=== PATIENT | male | born 1965 | race Caucasian/White ===

== ENCOUNTER 2021-07-12 14:33 | Inpatient (IN) ==
[2021-07-12] MEDS ORDERED: NOREPINEPHRINE 4 MG/4 ML VIAL IV ONE (16:29)
[2021-07-12] MEDS: NOREPINEPHRINE 8 MG in SODIUM CHLORIDE 0.9% 242 ML IV PRN ×3 (16:43→22:16)
[2021-07-12] MEDS ORDERED: ONDANSETRON 4 MG/2 ML VIAL IV PRN (16:43)
[2021-07-12] MEDS ORDERED: ACETAMINOPHEN 325 MG TABLET PO PRN (16:43)
[2021-07-12] MEDS ORDERED: ALBUTEROL 2.5 MG/3 ML NEB RESP TX PRN (16:43)
[2021-07-12] MEDS ORDERED: SODIUM BICARBONATE 50 MEQ/50 ML VIAL IV ONE ×2 (16:45→20:28)
[2021-07-12] MEDS ORDERED: GLUCAGON 1 MG VIAL IM PRN (16:45)
[2021-07-12] MEDS ORDERED: DEXTROSE 10% 250 ML BAG IV PRN (16:49)
[2021-07-12] MEDS: PANTOPRAZOLE 40 MG VIAL IV SCH (16:55)
[2021-07-12 17:05] LABS: Arterial Base Excess iSTAT -7 MMOL/L (-2.5-2.5); Arterial Bicarbonate iSTAT 21.6 MMOL/L (20-26); Arterial O2 Saturation iSTAT 83 % (95-100); Arterial PCO2 iSTAT 52 MM HG (35-48); Arterial PO2 iSTAT 57 MM HG (80-95); Arterial Total CO2 iSTAT 23 MMO/L (23-27); Arterial pH iSTAT 7.226 (7.35-7.45)
[2021-07-12] MEDS: MIDAZOLAM 100 MG in SODIUM CHLORIDE 0.9% 80 ML IV PRN (17:09)
[2021-07-12] MEDS ORDERED: ETOMIDATE 20 MG/10 ML VIAL IV ONE (17:09)
[2021-07-12] MEDS ORDERED: ROCURONIUM 100 MG/10 ML VIAL IV ONE (17:09)
[2021-07-12] MEDS ORDERED: MIDAZOLAM 2 MG/2 ML VIAL IV ONE (17:09)
[2021-07-12] MEDS ORDERED: MIDAZOLAM 10 MG/2 ML VIAL ONE (17:11)
[2021-07-12 17:24] LABS: INR 1.3; PT Patient Result 14.7 SECS (10.5-12.0); Partial Thromboplastin Time 35.9 SECS (23.8-32.1)
[2021-07-12 17:30] LABS: Basophils # 0.1 10*3/uL (0.0-0.2); Basophils % 0.4 % (0.0-0.8); Hematocrit 52.8 VOL% (42.0-52.0); Hemoglobin 16.2 GM/DL (14.0-18.0); Immature Granulocytes % 1.8 %; Immature Granulocytes Absolute 0.64 #; Lymphocytes # 13.7 10*3/uL (1.4-4.0); Lymphocytes % 38.1 % (21.2-54.2); Mean Corpuscular HGB Conc 30.7 GM/DL (32-36); Mean Platelet Volume 12.3 FL (9.6-12.0); Monocytes # 2.5 10*3/uL (0.11-0.8); Neutrophils % 52.7 % (38.7-73.9); Platelet Count 213 T/CUMM (130-400); Red Blood Count 5.56 MC/CUMM (3.8-5.5); Red Cell Distribution Width 13.7 % (9.3-17.3); White Blood Count 35.8 T/CUMM (4-12)
[2021-07-12 17:36] LABS: Risk Ratio 4.38; VLDL Cholesterol 33.4 MG/DL
[2021-07-12] MEDS ORDERED: CALCIUM GLUCONATE RIDER 1,000 MG/50 ML PREMIX IV ONE (17:50)
[2021-07-12 17:54] LABS: Band Neutrophils 25 % (0-10); Lymphocytes 5 % (20-55); Metamyelocytes 7 %; Total Cells Counted 100
[2021-07-12 17:57] LABS: Acanthocytes Few; Burr Cells Few; Platelet Estimate Normal
[2021-07-12 17:59] LABS: Alanine Aminotransferase 1777 U/L (16-61); Alkaline Phosphatase 92 U/L (45-117); Aspartate Amino Transferase 3536 U/L (0-37); Blood Urea Nitrogen 45 MG/DL (7-18); Calcium 7.2 MG/DL (8.5-10.1); Carbon Dioxide 13 MMOL/L (21-32); Chloride 110 MMOL/L (98-107); Estimated Glom Filtration Rate 18 ML/MIN; Glucose 236 MG/DL (74-106); Osmolality,Calculated 296.5 MOS/KG (273-304); Sodium 139 MMOL/L (136-145); Total Protein 4.7 G/DL (6.4-8.2)
[2021-07-12 18:00] LABS: Potassium 6.7 MMOL/L (3.5-5.1)
[2021-07-12] MEDS ORDERED: MAGNESIUM SULF RIDER 4 GM/100 ML PREMIX IV ONE (18:05)
[2021-07-12] MEDS: SODIUM BICARB INJ 150 MEQ in STERILE WATER INJ 1,000 ML IV SCH (18:22)
[2021-07-12] MEDS: INSULIN LISPRO 100 UNIT/ML SUBCUT SCH ×2 (18:30→21:02)
[2021-07-12] MEDS: PIPERACILLIN/TAZOBACTAM 3,375 MG in SODIUM CHLORIDE 0.9% 100 ML IV SCH (18:45)
[2021-07-12 20:15] LABS: ABG Base Excess -15.9 MMOL/L (-2.5-2.5); ABG Oxygen Saturation 91.8 % (95-100); ABG PCO2 44.8 MM HG (35-48); ABG PO2 79.6 MM HG (80-95); ABG TCO2 12.8 MMOL/L (23-27)
[2021-07-12 20:17] LABS: ABG PH 7.119 (7.35-7.45)
[2021-07-12] MEDS: SODIUM ZIRCONIUM CYCLOSILICATE 10 GM PACK PO SCH (20:19)
[2021-07-13] MEDS: INSULIN LISPRO 100 UNIT/ML SUBCUT SCH ×6 (00:23→20:08)
[2021-07-13 00:26] LABS: ABG Base Excess -11.5 MMOL/L (-2.5-2.5); ABG HCO3 15.6 MMOL/L (20-26); ABG Oxygen Saturation 91.9 % (95-100); ABG PCO2 39.7 MM HG (35-48); ABG PH 7.213 (7.35-7.45); ABG PO2 67.2 MM HG (80-95); ABG TCO2 16.8 MMOL/L (23-27)
[2021-07-13] MEDS: NOREPINEPHRINE 16 MG in SODIUM CHLORIDE 0.9% 234 ML IV PRN ×9 (00:26→22:36)
[2021-07-13 00:35] LABS: Bacteria,Urine Occasional /HPF (Few)
[2021-07-13 00:40] LABS: Bilirubin,Urine Negative (Negative); Blood, Urine Moderate mg/dL (Negative); Glucose,Urine (UA) 250 mg/dL (Negative); Ketones,Urine Trace mg/dL (Negative); Nitrite,Urine Negative (Negative); Protein,Urine >=300 mg/dL (Negative); Urine Appearance Clear (Clear); Urine Color Yellow (Yellow)
[2021-07-13 00:41] LABS: Urine Urobilinogen 0.2 eU/dL (<2.0)
[2021-07-13] MEDS: SODIUM BICARB INJ 150 MEQ in STERILE WATER INJ 1,000 ML IV SCH ×3 (02:08→18:00)
[2021-07-13] MEDS: PIPERACILLIN/TAZOBACTAM 3,375 MG in SODIUM CHLORIDE 0.9% 100 ML IV SCH ×2 (02:45→15:00)
[2021-07-13] MEDS: MORPHINE 2 MG/1 ML SYRINGE IV PRN (02:55)
[2021-07-13 04:37] LABS: ABG Base Excess -11.8 MMOL/L (-2.5-2.5); ABG HCO3 13.6 MMOL/L (20-26); ABG Oxygen Saturation 92.4 % (95-100); ABG PCO2 30.5 MM HG (35-48); ABG PH 7.266 (7.35-7.45); ABG PO2 67.4 MM HG (80-95); ABG TCO2 14.5 MMOL/L (23-27)
[2021-07-13 04:57] LABS: Basophils # 0.2 10*3/uL (0.0-0.2); Basophils % 0.4 % (0.0-0.8); Hematocrit 53.9 VOL% (42.0-52.0); Hemoglobin 17.1 GM/DL (14.0-18.0); Immature Granulocytes % 0.9 %; Immature Granulocytes Absolute 0.32 #; Lymphocytes # 17.8 10*3/uL (1.4-4.0); Lymphocytes % 51.7 % (21.2-54.2); Mean Corpuscular HGB Conc 31.7 GM/DL (32-36); Mean Corpuscular Volume 91.5 FL (87-102); Mean Platelet Volume 12.1 FL (9.6-12.0); Monocytes # 2.8 10*3/uL (0.11-0.8); Platelet Count 190 T/CUMM (130-400); Red Blood Count 5.89 MC/CUMM (3.8-5.5); Red Cell Distribution Width 14.2 % (9.3-17.3); White Blood Count 34.3 T/CUMM (4-12)
[2021-07-13] MEDS ORDERED: SODIUM BICARBONATE 50 MEQ/50 ML VIAL IV ONE ×3 (05:16→13:28)
[2021-07-13 05:20] LABS: Albumin 1.8 G/DL (3.4-5.0); Calcium 6.9 MG/DL (8.5-10.1); Osmolality,Calculated 293.5 MOS/KG (273-304); Total Protein 4.7 G/DL (6.4-8.2)
[2021-07-13 05:36] LABS: Band Neutrophils 3 % (0-10); Lymphocytes 27 % (20-55); Platelet Estimate Adequate; Total Cells Counted 100
[2021-07-13 05:37] LABS: Smudge Cells Few
[2021-07-13 06:08] VITALS: BP 105/50
[2021-07-13] MEDS ORDERED: SODIUM CHLORIDE 0.9% 1,000 ML IV ONE ×5 (06:53→22:54)
[2021-07-13] MEDS: SODIUM ZIRCONIUM CYCLOSILICATE 10 GM PACK PO SCH ×3 (08:30→20:08)
[2021-07-13] MEDS: MIDAZOLAM 100 MG in SODIUM CHLORIDE 0.9% 80 ML IV PRN (10:30)
[2021-07-13] MEDS: gemfibroziL 600 MG TABLET PO SCH ×2 (12:36→19:53)
[2021-07-13 13:23] LABS: ABG Base Excess -11.7 MMOL/L (-2.5-2.5); ABG HCO3 15.4 MMOL/L (20-26); ABG Oxygen Saturation 90.6 % (95-100); ABG PCO2 31.7 MM HG (35-48); ABG PH 7.265 (7.35-7.45); ABG PO2 70.5 MM HG (80-95); ABG TCO2 12.4 MMOL/L (23-27)
[2021-07-13] MEDS ORDERED: HYDROCORTISONE 100 MG VIAL IV ONE (13:28)
[2021-07-13] MEDS ORDERED: NOREPINEPHRINE 4 MG/4 ML VIAL IV ONE (13:38)
[2021-07-13 13:43] LABS: Calcium 5.9 MG/DL (8.5-10.1); Potassium 5.9 MMOL/L (3.5-5.1)
[2021-07-13] MEDS ORDERED: CALCIUM GLUCONATE RIDER 1,000 MG/50 ML PREMIX IV ONE (13:48)
[2021-07-13] MEDS ORDERED: ZINC OXIDE PASTE 113 GM TUBE TOP PRN (14:15)
[2021-07-13 14:51] LABS: ABG Base Excess -10.5 MMOL/L (-2.5-2.5); ABG HCO3 16.3 MMOL/L (20-26); ABG Oxygen Saturation 93.6 % (95-100); ABG PCO2 31.4 MM HG (35-48); ABG PO2 79.2 MM HG (80-95); ABG TCO2 12.9 MMOL/L (23-27)
[2021-07-13 15:10] LABS: Calcium 6.1 MG/DL (8.5-10.1); Osmolality,Calculated 304.8 MOS/KG (273-304); Potassium 5.9 MMOL/L (3.5-5.1)
[2021-07-13] MEDS ORDERED: PHENYLEPHRINE DRIP 40 MG/250 ML PREMIX IV ONE (15:16)
[2021-07-13] MEDS: PHENYLEPHRINE DRIP 40 MG/250 ML PREMIX IV PRN ×3 (15:20→19:50)
[2021-07-13] MEDS ORDERED: VASOPRESSIN 20 UNITS/ML VIAL ONE (15:30)
[2021-07-13] MEDS: VASOPRESSIN 100 UNITS in SODIUM CHLORIDE 0.9% 95 ML IV SCH ×2 (15:50→21:36)
[2021-07-13] MEDS ORDERED: HEPARIN 10,000 UNIT/10 ML VIAL IV SCH (17:30)
[2021-07-13 19:32] LABS: Hepatitis B Core IgM Quant 0.08 Index
[2021-07-13] MEDS: ACETAMINOPHEN 325 MG/10.15 ML UDCUP NG PRN (20:08)
[2021-07-13] MEDS: PANTOPRAZOLE 40 MG VIAL IV SCH (20:36)
[2021-07-13 20:46] LABS: Hepatitis B Surface Ag Quant < 0.10 Index; Hepatitis B Surface Ag Result Non-Reactive (NonReactive); Hepatitis C Virus Ab Quant 0.14 Index; Hepatitis C Virus Ab Result Non-Reactive (NonReactive)
[2021-07-13] MEDS: PHENYLEPHRINE INJ 80 MG in SODIUM CHLORIDE 0.9% 242 ML IV PRN (23:52)
[2021-07-14 00:13] LABS: ABG Base Excess -10.8 MMOL/L (-2.5-2.5); ABG HCO3 13.4 MMOL/L (20-26); ABG Oxygen Saturation 97.1 % (95-100); ABG PCO2 26.7 MM HG (35-48); ABG PH 7.319 (7.35-7.45); ABG PO2 108.3 MM HG (80-95); ABG TCO2 14.2 MMOL/L (23-27); Glucose Heart Surgery 77 MG/DL (74-106); Hemoglobin Heart Surgery 15.1 G/DL (14.0-18.0); Potassium Heart/CVR 4.8 MMOL/L (3.5-5.1)
[2021-07-14] MEDS ORDERED: SODIUM BICARBONATE 50 MEQ/50 ML VIAL IV ONE ×5 (00:14→23:30)
[2021-07-14] MEDS: VASOPRESSIN 100 UNITS in SODIUM CHLORIDE 0.9% 95 ML IV SCH ×3 (00:22→10:28)
[2021-07-14] MEDS: INSULIN LISPRO 100 UNIT/ML SUBCUT SCH ×6 (00:26→19:54)
[2021-07-14] MEDS ORDERED: CALCIUM GLUCONATE RIDER 1,000 MG/50 ML PREMIX IV ONE ×3 (00:31→17:03)
[2021-07-14] MEDS: NOREPINEPHRINE 16 MG in SODIUM CHLORIDE 0.9% 234 ML IV PRN ×11 (01:00→23:31)
[2021-07-14] MEDS: SODIUM BICARB INJ 150 MEQ in STERILE WATER INJ 1,000 ML IV SCH ×3 (01:40→17:10)
[2021-07-14] MEDS: PHENYLEPHRINE INJ 80 MG in SODIUM CHLORIDE 0.9% 242 ML IV PRN ×3 (02:00→06:08)
[2021-07-14] MEDS ORDERED: CALCIUM GLUCONATE 1,000 MG/10 ML VIAL IV ONE (02:33)
[2021-07-14] MEDS: PIPERACILLIN/TAZOBACTAM 3,375 MG in SODIUM CHLORIDE 0.9% 100 ML IV SCH ×2 (03:30→15:20)
[2021-07-14 03:35] LABS: ABG Base Excess -11.2 MMOL/L (-2.5-2.5); ABG HCO3 15.8 MMOL/L (20-26); ABG Oxygen Saturation 93.5 % (95-100); ABG PCO2 30.6 MM HG (35-48); ABG PH 7.282 (7.35-7.45); ABG PO2 81.7 MM HG (80-95); ABG TCO2 12.4 MMOL/L (23-27)
[2021-07-14 04:07] LABS: Basophils # 0.1 10*3/uL (0.0-0.2); Basophils % 0.1 % (0.0-0.8); Eosinophils # 0.5 10*3/uL (0.0-0.87); Eosinophils % 1.3 % (0.00-10.9); Hematocrit 48.7 VOL% (42.0-52.0); Hemoglobin 15.4 GM/DL (14.0-18.0); Immature Granulocytes % 1.3 %; Immature Granulocytes Absolute 0.49 #; Lymphocytes # 18.7 10*3/uL (1.4-4.0); Lymphocytes % 49.9 % (21.2-54.2); Mean Corpuscular HGB Conc 31.6 GM/DL (32-36); Mean Corpuscular Volume 91.7 FL (87-102); Mean Platelet Volume 11.5 FL (9.6-12.0); Monocytes # 2.8 10*3/uL (0.11-0.8); Monocytes % 7.4 % (1.7-12.7); NRBC # 0.46 10*3/uL; Platelet Count 107 T/CUMM (130-400); Red Blood Count 5.31 MC/CUMM (3.8-5.5); Red Cell Distribution Width 15.1 % (9.3-17.3); White Blood Count 37.5 T/CUMM (4-12)
[2021-07-14 04:25] LABS: Albumin 1.3 G/DL (3.4-5.0); Bilirubin,Total 1.2 MG/DL (0.20-1.00); Calcium 5.9 MG/DL (8.5-10.1); Osmolality,Calculated 302.1 MOS/KG (273-304); Potassium 4.6 MMOL/L (3.5-5.1); Total Protein 3.8 G/DL (6.4-8.2)
[2021-07-14 04:48] LABS: Lymphocytes 53 % (20-55); Nucleated Red Blood Cells 4 (0-5); Platelet Estimate Decreased; Total Cells Counted 100
[2021-07-14] MEDS ORDERED: ALBUMIN 5% 12.5 GM/250 ML VIAL IV ONE (06:10)
[2021-07-14] MEDS ORDERED: SODIUM BICARBONATE 50 MEQ/50 ML SYRINGE IV ONE (06:13)
[2021-07-14] MEDS: PHENYLEPHRINE INJ 160 MG in SODIUM CHLORIDE 0.9% 234 ML IV PRN ×4 (08:15→20:47)
[2021-07-14 09:14] LABS: Basophils % 0.1 % (0.0-0.8); Eosinophils # 0.4 10*3/uL (0.0-0.87); Eosinophils % 1.1 % (0.00-10.9); Hematocrit 46.4 VOL% (42.0-52.0); Hemoglobin 14.7 GM/DL (14.0-18.0); Immature Granulocytes Absolute 0.37 #; Lymphocytes # 18.6 10*3/uL (1.4-4.0); Lymphocytes % 51.6 % (21.2-54.2); Mean Corpuscular HGB Conc 31.7 GM/DL (32-36); Mean Corpuscular Volume 91.5 FL (87-102); Mean Platelet Volume 12.6 FL (9.6-12.0); Monocytes # 1.4 10*3/uL (0.11-0.8); NRBC # 0.31 10*3/uL; Neutrophils % 42.2 % (38.7-73.9); Platelet Count 108 T/CUMM (130-400); Red Blood Count 5.07 MC/CUMM (3.8-5.5); Red Cell Distribution Width 15.4 % (9.3-17.3)
[2021-07-14 09:14] LABS: ABG HCO3 17.3 MMOL/L (20-26); ABG Oxygen Saturation 92.2 % (95-100); ABG PCO2 30.2 MM HG (35-48); ABG PH 7.327 (7.35-7.45); ABG TCO2 13.7 MMOL/L (23-27)
[2021-07-14] MEDS: HYDROCORTISONE 100 MG VIAL IV SCH ×3 (09:15→23:42)
[2021-07-14] MEDS: gemfibroziL 600 MG TABLET PO SCH (09:15)
[2021-07-14] MEDS: ACETAMINOPHEN 325 MG/10.15 ML UDCUP NG PRN ×2 (09:34→20:50)
[2021-07-14 09:36] LABS: Osmolality,Calculated 311.6 MOS/KG (273-304); Potassium 4.6 MMOL/L (3.5-5.1)
[2021-07-14] MEDS ORDERED: VASOPRESSIN 100 UNITS in SODIUM CHLORIDE 0.9% 95 ML IV PRN (09:37)
[2021-07-14 09:43] LABS: Calcium 5.4 MG/DL (8.5-10.1)
[2021-07-14 09:55] LABS: Band Neutrophils 4 % (0-10); Lymphocytes 35 % (20-55); Total Cells Counted 100
[2021-07-14 09:57] LABS: Smudge Cells Moderate
[2021-07-14 09:59] LABS: Anisocytosis Slight; Platelet Estimate Adequate
[2021-07-14] MEDS: SODIUM ZIRCONIUM CYCLOSILICATE 10 GM PACK PO SCH (10:30)
[2021-07-14 16:18] LABS: ABG Base Excess -9.8 MMOL/L (-2.5-2.5); ABG HCO3 16.7 MMOL/L (20-26); ABG Oxygen Saturation 91.6 % (95-100); ABG PCO2 40.1 MM HG (35-48); ABG PH 7.245 (7.35-7.45); ABG PO2 80.4 MM HG (80-95); ABG TCO2 15.3 MMOL/L (23-27)
[2021-07-14 16:34] LABS: Osmolality,Calculated 314.7 MOS/KG (273-304); Potassium 5.2 MMOL/L (3.5-5.1)
[2021-07-14 16:35] LABS: Calcium 5.1 MG/DL (8.5-10.1)
[2021-07-14] MEDS: PANTOPRAZOLE 40 MG VIAL IV SCH (17:23)
[2021-07-14] MEDS ORDERED: MIDAZOLAM 100 MG in SODIUM CHLORIDE 0.9% 80 ML IV PRN (21:11)
[2021-07-15] MEDS: INSULIN LISPRO 100 UNIT/ML SUBCUT SCH ×7 (00:56→20:53)
[2021-07-15] MEDS: PHENYLEPHRINE INJ 160 MG in SODIUM CHLORIDE 0.9% 234 ML IV PRN ×4 (01:01→13:50)
[2021-07-15] MEDS ORDERED: SODIUM BICARBONATE 50 MEQ/50 ML VIAL IV ONE ×5 (01:01→15:00)
[2021-07-15] MEDS: SODIUM BICARB INJ 150 MEQ in STERILE WATER INJ 1,000 ML IV SCH ×4 (01:42→22:44)
[2021-07-15] MEDS: NOREPINEPHRINE 16 MG in SODIUM CHLORIDE 0.9% 234 ML IV PRN ×10 (01:45→23:11)
[2021-07-15] MEDS: PIPERACILLIN/TAZOBACTAM 3,375 MG in SODIUM CHLORIDE 0.9% 100 ML IV SCH (02:50)
[2021-07-15 04:07] LABS: Basophils % 0.1 % (0.0-0.8); Eosinophils # 0.4 10*3/uL (0.0-0.87); Eosinophils % 1.2 % (0.00-10.9); Hematocrit 44.5 VOL% (42.0-52.0); Hemoglobin 13.7 GM/DL (14.0-18.0); Immature Granulocytes % 1.9 %; Immature Granulocytes Absolute 0.72 #; Lymphocytes # 17.7 10*3/uL (1.4-4.0); Lymphocytes % 47.4 % (21.2-54.2); Mean Corpuscular HGB Conc 30.8 GM/DL (32-36); Mean Corpuscular Volume 92.9 FL (87-102); Mean Platelet Volume 12.4 FL (9.6-12.0); Monocytes # 1.5 10*3/uL (0.11-0.8); Monocytes % 4.1 % (1.7-12.7); NRBC # 0.28 10*3/uL; Neutrophils % 45.3 % (38.7-73.9); Platelet Count 77 T/CUMM (130-400); Red Blood Count 4.79 MC/CUMM (3.8-5.5); Red Cell Distribution Width 15.9 % (9.3-17.3); White Blood Count 37.3 T/CUMM (4-12)
[2021-07-15 04:09] LABS: ABG Base Excess -10.2 MMOL/L (-2.5-2.5); ABG HCO3 16.1 MMOL/L (20-26); ABG Oxygen Saturation 88.3 % (95-100); ABG PCO2 36.9 MM HG (35-48); ABG PH 7.258 (7.35-7.45); ABG PO2 66.5 MM HG (80-95); ABG TCO2 17.2 MMOL/L (23-27)
[2021-07-15 04:49] LABS: Alanine Aminotransferase 594 U/L (16-61); Albumin 1.2 G/DL (3.4-5.0); Alkaline Phosphatase 132 U/L (45-117); Aspartate Amino Transferase 877 U/L (0-37); Blood Urea Nitrogen 95 MG/DL (7-18); Carbon Dioxide 17 MMOL/L (21-32); Chloride 100 MMOL/L (98-107); Estimated Glom Filtration Rate 9 ML/MIN; Glucose 257 MG/DL (74-106); Osmolality,Calculated 320.1 MOS/KG (273-304); Sodium 142 MMOL/L (136-145); Total Protein 3.6 G/DL (6.4-8.2)
[2021-07-15 04:52] LABS: Calcium < 5.0 MG/DL (8.5-10.1); Potassium 6.1 MMOL/L (3.5-5.1)
[2021-07-15] MEDS ORDERED: CALCIUM GLUCONATE RIDER 1,000 MG/50 ML PREMIX IV ONE ×3 (05:00→15:18)
[2021-07-15] MEDS: SODIUM ZIRCONIUM CYCLOSILICATE 10 GM PACK PO SCH ×4 (05:22→20:57)
[2021-07-15 05:47] LABS: Anisocytosis 1+; Band Neutrophils 26 % (0-10); Lymphocytes 20 % (20-55); Macrocytosis Slight; Metamyelocytes 2 %; Nucleated Red Blood Cells 3 (0-5); Platelet Estimate Decreased; Total Cells Counted 100
[2021-07-15] MEDS: HYDROCORTISONE 100 MG VIAL IV SCH ×2 (08:43→16:28)
[2021-07-15] MEDS ORDERED: DEXAMETHASONE 4 MG/1 ML VIAL IV ONE (10:22)
[2021-07-15 10:28] LABS: ABG Base Excess -7.2 MMOL/L (-2.5-2.5); ABG HCO3 18.4 MMOL/L (20-26); ABG Oxygen Saturation 84.9 % (95-100); ABG PH 7.294 (7.35-7.45); ABG PO2 56.2 MM HG (80-95); ABG TCO2 16.7 MMOL/L (23-27); Glucose Heart Surgery 306 MG/DL (74-106)
[2021-07-15 10:31] LABS: Potassium Heart/CVR 6.1 MMOL/L (3.5-5.1)
[2021-07-15] MEDS ORDERED: EPINEPHrine 1 MG/ML VIAL ONE (11:06)
[2021-07-15] MEDS: FLUDROCORTISONE 0.1 MG TABLET PO SCH (11:10)
[2021-07-15] MEDS: MIDODRINE 5 MG TABLET PO SCH ×3 (11:10→20:57)
[2021-07-15] MEDS: ALBUMIN 5% 12.5 GM/250 ML VIAL IV SCH ×2 (11:28→18:28)
[2021-07-15] MEDS: MEROPENEM 500 MG in SODIUM CHLORIDE 0.9% 100 ML IV SCH (11:29)
[2021-07-15] MEDS ORDERED: CALCIUM CHLORIDE 1,000 MG/10 ML SYRINGE IV ONE ×2 (13:04→13:30)
[2021-07-15] MEDS ORDERED: ALBUMIN 5% 12.5 GM/250 ML VIAL IV ONE (13:30)
[2021-07-15 14:33] LABS: ABG HCO3 13.7 MMOL/L (20-26); ABG Oxygen Saturation 84.2 % (95-100); ABG PCO2 52.8 MM HG (35-48); ABG TCO2 15.2 MMOL/L (23-27)
[2021-07-15 14:37] LABS: ABG PH 7.105 (7.35-7.45)
[2021-07-15 15:01] LABS: Albumin 1.8 G/DL (3.4-5.0); Bilirubin,Total 3.8 MG/DL (0.20-1.00); Osmolality,Calculated 314.1 MOS/KG (273-304); Potassium 4.8 MMOL/L (3.5-5.1); Total Protein 4.3 G/DL (6.4-8.2)
[2021-07-15 15:09] LABS: Calcium 5.8 MG/DL (8.5-10.1)
[2021-07-15 16:01] LABS: ABG Base Excess -11.1 MMOL/L (-2.5-2.5); ABG HCO3 15.6 MMOL/L (20-26); ABG Oxygen Saturation 82.6 % (95-100); ABG PCO2 44.7 MM HG (35-48); ABG PO2 62.8 MM HG (80-95); ABG TCO2 15.7 MMOL/L (23-27)
[2021-07-15 16:04] LABS: ABG PH 7.192 (7.35-7.45)
[2021-07-15] MEDS: PANTOPRAZOLE 40 MG VIAL IV SCH (17:16)
[2021-07-15 17:57] LABS: ABG Base Excess -10.1 MMOL/L (-2.5-2.5); ABG HCO3 16.4 MMOL/L (20-26); ABG Oxygen Saturation 90.9 % (95-100); ABG PCO2 38.1 MM HG (35-48); ABG PH 7.251 (7.35-7.45); ABG PO2 73.4 MM HG (80-95)
[2021-07-15 20:20] LABS: ABG Base Excess -7.6 MMOL/L (-2.5-2.5); ABG HCO3 18.2 MMOL/L (20-26); ABG Oxygen Saturation 91.2 % (95-100); ABG PCO2 36.9 MM HG (35-48); ABG PH 7.302 (7.35-7.45); ABG TCO2 16.3 MMOL/L (23-27)
[2021-07-15 20:25] LABS: ABG PO2 75.2 MM HG (80-95)
[2021-07-15] MEDS ORDERED: AMIODARONE INJ 150 MG in DEXTROSE 5% 100 ML IV ONE (20:37)
[2021-07-15] MEDS ORDERED: AMIODARONE 150 MG/3 ML VIAL ONE (20:39)
[2021-07-15 20:43] LABS: Blood Urea Nitrogen 87 MG/DL (7-18); Carbon Dioxide 19 MMOL/L (21-32); Chloride 97 MMOL/L (98-107); Estimated Glom Filtration Rate 10 ML/MIN; Glucose 329 MG/DL (74-106); Osmolality,Calculated 325.8 MOS/KG (273-304); Potassium 5.6 MMOL/L (3.5-5.1); Sodium 144 MMOL/L (136-145)
[2021-07-15 20:45] LABS: Calcium < 5.0 MG/DL (8.5-10.1)
[2021-07-15] MEDS ORDERED: CALCIUM GLUCONATE RIDER 2,000 MG/100 ML PREMIX IV ONE (20:46)
[2021-07-15] MEDS ORDERED: AMIODARONE INJ 450 MG in DEXTROSE 5% 241 ML IV SCH (21:00)
[2021-07-15] MEDS: CALCIUM GLUCONATE IV SCH (22:58)
[2021-07-15] MEDS: SODIUM CHLORIDE 0.9% IV SCH (22:58)
[2021-07-15 23:03] LABS: ABG Base Excess -6.9 MMOL/L (-2.5-2.5); ABG HCO3 18.7 MMOL/L (20-26); ABG Oxygen Saturation 88.6 % (95-100); ABG PCO2 35.9 MM HG (35-48); ABG TCO2 16.6 MMOL/L (23-27)
[2021-07-15 23:21] LABS: Albumin 1.7 G/DL (3.4-5.0); Bilirubin,Total 5.3 MG/DL (0.20-1.00); Osmolality,Calculated 326.1 MOS/KG (273-304); Potassium 5.5 MMOL/L (3.5-5.1); Total Protein 3.8 G/DL (6.4-8.2)
[2021-07-15 23:23] LABS: Calcium 5.2 MG/DL (8.5-10.1)
[2021-07-15] MEDS: MORPHINE 2 MG/1 ML SYRINGE IV PRN (23:29)
[2021-07-16] MEDS: INSULIN LISPRO 100 UNIT/ML SUBCUT SCH ×3 (01:23→08:41)
[2021-07-16] MEDS: HYDROCORTISONE 100 MG VIAL IV SCH ×3 (01:24→16:13)
[2021-07-16] MEDS: ALBUMIN 5% 12.5 GM/250 ML VIAL IV SCH (02:33)
[2021-07-16] MEDS: NOREPINEPHRINE 16 MG in SODIUM CHLORIDE 0.9% 234 ML IV PRN ×4 (02:41→17:47)
[2021-07-16] MEDS: AMIODARONE INJ 450 MG in DEXTROSE 5% 241 ML IV SCH ×4 (02:58→21:38)
[2021-07-16 03:44] LABS: ABG Base Excess -4.7 MMOL/L (-2.5-2.5); ABG HCO3 20.4 MMOL/L (20-26); ABG Oxygen Saturation 89.3 % (95-100); ABG PCO2 35.8 MM HG (35-48); ABG PH 7.358 (7.35-7.45); ABG PO2 67.4 MM HG (80-95)
[2021-07-16 03:45] LABS: Basophils # 0.2 10*3/uL (0.0-0.2); Basophils % 0.4 % (0.0-0.8); Eosinophils # 0.1 10*3/uL (0.0-0.87); Eosinophils % 0.1 % (0.00-10.9); Hematocrit 36.7 VOL% (42.0-52.0); Hemoglobin 11.6 GM/DL (14.0-18.0); Immature Granulocytes % 5.3 %; Immature Granulocytes Absolute 2.14 #; Lymphocytes # 15.2 10*3/uL (1.4-4.0); Lymphocytes % 37.3 % (21.2-54.2); Mean Corpuscular HGB Conc 31.6 GM/DL (32-36); Mean Corpuscular Volume 90.6 FL (87-102); Mean Platelet Volume 13.2 FL (9.6-12.0); Monocytes # 1.4 10*3/uL (0.11-0.8); Monocytes % 3.5 % (1.7-12.7); Neutrophils % 53.4 % (38.7-73.9); Platelet Count 49 T/CUMM (130-400); Red Blood Count 4.05 MC/CUMM (3.8-5.5); Red Cell Distribution Width 15.2 % (9.3-17.3)
[2021-07-16 03:50] LABS: White Blood Count 40.7 T/CUMM (4-12)
[2021-07-16 03:54] LABS: INR 1.4; PT Patient Result 15.1 SECS (10.5-12.0); Partial Thromboplastin Time 40.5 SECS (23.8-32.1)
[2021-07-16 04:02] LABS: Albumin 1.9 G/DL (3.4-5.0); Bilirubin,Total 5.6 MG/DL (0.20-1.00); Osmolality,Calculated 324.4 MOS/KG (273-304); Potassium 5.3 MMOL/L (3.5-5.1); Total Protein 3.9 G/DL (6.4-8.2)
[2021-07-16 04:05] LABS: Calcium 5.1 MG/DL (8.5-10.1)
[2021-07-16 04:28] LABS: Lymphocytes 27 % (20-55); Total Cells Counted 100
[2021-07-16 04:29] LABS: Platelet Estimate Decreased
[2021-07-16] MEDS: SODIUM BICARB INJ 150 MEQ in STERILE WATER INJ 1,000 ML IV SCH ×4 (07:55→22:28)
[2021-07-16] MEDS: SODIUM ZIRCONIUM CYCLOSILICATE 10 GM PACK PO SCH ×2 (08:15→15:22)
[2021-07-16] MEDS: FLUDROCORTISONE 0.1 MG TABLET PO SCH (08:16)
[2021-07-16] MEDS: MIDODRINE 5 MG TABLET PO SCH ×3 (08:16→21:10)
[2021-07-16] MEDS: INSULIN REGULAR DRIP 100 ML IV PRN ×2 (09:24→19:58)
[2021-07-16] MEDS: MEROPENEM 500 MG in SODIUM CHLORIDE 0.9% 100 ML IV SCH (11:08)
[2021-07-16 12:33] LABS: Albumin 1.9 G/DL (3.4-5.0); Bilirubin,Total 6.3 MG/DL (0.20-1.00); Osmolality,Calculated 307.5 MOS/KG (273-304)
[2021-07-16 12:35] LABS: Calcium 5.7 MG/DL (8.5-10.1)
[2021-07-16 13:44] LABS: Basophils # 0.6 10*3/uL (0.0-0.2); Basophils % 1.4 % (0.0-0.8); Eosinophils # 0.1 10*3/uL (0.0-0.87); Eosinophils % 0.1 % (0.00-10.9); Hematocrit 36.6 VOL% (42.0-52.0); Hemoglobin 11.9 GM/DL (14.0-18.0); Immature Granulocytes % 6.4 %; Immature Granulocytes Absolute 2.62 #; Lymphocytes # 14.2 10*3/uL (1.4-4.0); Lymphocytes % 34.4 % (21.2-54.2); Mean Corpuscular HGB Conc 32.5 GM/DL (32-36); Mean Corpuscular Volume 88.6 FL (87-102); Mean Platelet Volume 11.9 FL (9.6-12.0); Monocytes # 0.8 10*3/uL (0.11-0.8); NRBC # 0.58 10*3/uL; Neutrophils % 55.7 % (38.7-73.9); Platelet Count 43 T/CUMM (130-400); Red Blood Count 4.13 MC/CUMM (3.8-5.5); Red Cell Distribution Width 14.9 % (9.3-17.3)
[2021-07-16 13:46] LABS: White Blood Count 41.2 T/CUMM (4-12)
[2021-07-16 14:14] LABS: Albumin 1.8 G/DL (3.4-5.0); Bilirubin,Total 6.2 MG/DL (0.20-1.00); Osmolality,Calculated 311.4 MOS/KG (273-304); Total Protein 3.8 G/DL (6.4-8.2)
[2021-07-16 14:20] LABS: Calcium 5.5 MG/DL (8.5-10.1)
[2021-07-16 14:53] LABS: Band Neutrophils 1 % (0-10); Lymphocytes 5 % (20-55); Metamyelocytes 1 %; Nucleated Red Blood Cells 3 (0-5); Total Cells Counted 100
[2021-07-16 14:54] LABS: Basophilic Stippling Slight; Polychromasia Few; Toxic Granulation 1+
[2021-07-16 14:55] LABS: Smudge Cells 1+
[2021-07-16 14:56] LABS: Atypical Lymphocytes Few; Platelet Estimate Decreased
[2021-07-16] MEDS: PANTOPRAZOLE 40 MG VIAL IV SCH (17:27)
[2021-07-16] MEDS: SODIUM CHLORIDE 0.9% IV SCH (20:51)
[2021-07-16] MEDS: CALCIUM GLUCONATE IV SCH (20:51)
[2021-07-16] MEDS ORDERED: SODIUM CHLORIDE 0.9% IV SCH (21:00)
[2021-07-16] MEDS ORDERED: CALCIUM GLUCONATE IV SCH (21:00)
[2021-07-16 23:38] LABS: ABG Base Excess 4.4 MMOL/L (-2.5-2.5); ABG Oxygen Saturation 81.9 % (95-100); ABG PCO2 46.6 MM HG (35-48); ABG PH 7.414 (7.35-7.45); ABG PO2 54.9 MM HG (80-95); ABG TCO2 26.5 MMOL/L (23-27)
[2021-07-16] MEDS: MORPHINE 2 MG/1 ML SYRINGE IV PRN (23:47)
[2021-07-17] MEDS ORDERED: EPINEPHrine 1 MG/10 ML SYRINGE IV ONE (00:13)
[2021-07-17] MEDS ORDERED: CALCIUM CHLORIDE 1,000 MG/10 ML SYRINGE IV ONE (00:16)
[2021-07-17] MEDS ORDERED: SODIUM BICARBONATE 50 MEQ/50 ML SYRINGE IV ONE (00:16)
[2021-07-17] MEDS ORDERED: DEXTROSE 50% 25 GM/50 ML SYRINGE IV ONE (00:28)
== END 2021-07-17 00:31 | disposition expired | DRG 438 ==
LOC: N.ICU 16:38 → SUATTDRO 16:38
PROVIDERS: ADMIT Family Medicine; ATTEND Internal Medicine